=== PATIENT | female | born 1985 | race Caucasian/White ===

== ENCOUNTER 2018-09-11 18:07 | Observation (INO) ==
--- NOTE | 2018-09-11 18:43 | PROVIDER DOCUMENTATION ---
HPI-General Adult - General Chief Complaint: Seizure Stated Complaint: SEIZURE Time Seen by Provider: 09/11/18 18:24 Source: patient Allergies/Adverse Reactions: Patient Allergies Allergy/AdvReac Type Severity Reaction Status Date / Time azithromycin Allergy Severe Unknown Verified 09/11/18 21:57 [From Zithromax Z-Thanh] ketorolac [From Toradol] Allergy Mild Unknown Verified 09/11/18 21:57 - History of Present Illness -Gen Adult Nature of Presenting Problems: Pt. is 33 yof that presents with c/o seizures. Pt. reports she has a Hx of seizures and states she has had 16 seizures in the last week. Pt. states no one is hurting her despite significant bruising on her body. She was not incontinent and did not bite her tongue or lip. Location of Pain/Injury: reports: head, hand(s) (Right). denies: none, face, mouth, neck, chest, upper extremity, abdomen, back, pelvis, genitalia, lower extremity, feet, upper body, lower body, generalized, other Pain Radiation: reports: no radiation. denies: arm(s), back, buttocks, chest, epigastric, feet, groin, jaw, flank (L), legs (lower), LLQ, LUQ, neck, periumbilical, flank (R), RLQ, RUQ, shoulder(s), scapula, scrotal, sternal notch, suprapubic, legs (upper), urethral, vaginal, other Quality of Pain: reports: aching. denies: burning, indigestion, sharp, throbbing, tightness Severity: reports: mild. denies: moderate, severe Onset/Duration: reports: gradual, 1 week ago Timing: reports: still present. denies: improving, intermittent, getting worse Context/Activities at Onset: reports: vigorous activity, recent trauma history. denies: none, light activity, moderate activity, recent emotional stress, recent physical stress, possible bad food, cold exposure, eating, out of country travel, rest, sleep, sexual activity, other Modifying Factors: improves with: nothing Associated Symptoms: reports: seizure. denies: denies symptoms, anxiety, arm pain, back/neck pain, chest pain, constipation, cough, diaphoresis, diarrhea, dizziness, EENT symptoms, fatigue, fever/chills, genitourinary problems, headaches, heartburn, joint pain, loss of appetite, malaise, muscle aches, sinus congestion/drainage, nausea, rash, shortness of breath, sensory/motor loss, pain with inspiration, swelling/mass in abdomen, syncope, vomiting, weakness, trouble walking, other Similar Symptoms Previously?: Yes Recently seen or treated by another doctor?: No Review of Systems - Adult - REVIEW OF SYSTEMS - ADULT Constitutional: reports: no symptoms reported Eyes: reports: no symptoms reported Ears, Nose, Mouth & Throat: reports: no symptoms reported Cardiovascular: reports: no symptoms reported Respiratory: reports: no symptoms reported Gastrointestinal: reports: no symptoms reported Genitourinary: reports: no symptoms reported Musculoskeletal: reports: see HPI, joint pain (Right hand), joint swelling (Right hand), muscle aches. denies: bone pain, back pain, neck pain Integumentary: reports: no symptoms reported Neurological: reports: see HPI, headache/migraines, seizure. denies: diz ziness/vertigo, numbness, tremors Psychiatric: reports: no symptoms reported Past History - Adult - PAST MEDICAL HISTORY-ADULT Review of Records: reports: Old Records Reviewed, Nursing Assessment Review, Medications Reviewed, Social history reviewed & non-contributory. - IMMUNIZATION STATUS Childhood Immunizations: See Nurse Assessment Flu Vaccine: See Nurse Assessment - FAMILY HISTORY Family History: reviewed, not pertinent - SOCIAL HISTORY Smoking: cigarettes, greater than 1 pack/day Provider spent 3-5 mins advising pt. on dangers of tobacco.: Discussed manners to quit use, and f/u contacts for add'l counseling. Physical Exam-General - PHYSICAL EXAM-ADULT Initial Vital Signs Reviewed: Yes - CONSTITUTIONAL General Appearance: alert, no apparent distress - EYES Eyes: PERRL/EOMI, pink conjunctivae - HEAD, EARS, NOSE, MOUTH & THROAT HENMT: moist mucous membranes - NECK Neck: non-tender, full range of motion, supple, normal inspection - RESPIRATORY Respiratory: lungs clear, normal breath sounds - CARDIOVASCULAR Cardiovascular: normal peripheral pulses, regular rate, rhythm - GASTROINTESTINAL (ABDOMEN) Abdominal Exam: normal bowel sounds, non tender, soft - LYMPHATIC Lymphatic: no adenopathy. negative: axilla node tender, cervical node tenderness - MUSCULOSKELETAL Back Exam: normal inspection, no CVA tenderness Extremity: swelling (Right hand), tenderness (Right hand) Peripheral Pulses: radial (R): 2+, radial (L): 2+ - SKIN Integumentary: normal color, normal turgor, ecchymosis (There are multiple bruises all over the body). negative: cyanosis, jaundice, warm - NEUROLOGIC Neurologic: grossly normal, no motor/sensory deficits - PSYCHIATRIC Psych/Mental Status: normal mood/affect, normal thought content, normal thought process, oriented x 3 Progress - PLAN OF CARE/RESULTS Progress/Plan/Lab Results: Vital Signs - 8 hr 09/11/18 18:10 09/11/18 18:16 Temperature 99.7 F H 99.7 F H Pulse Rate 95 H 102 H Respiratory Rate 16 16 Blood Pressure 133/88 130/88 O2 Sat by Pulse Oximetry 96 95 Orders Category Date Time Status ED: Urine Bedside ORDERED Care 09/11/18 18:36 Active FSBS [Finger Stick Blood Sugar (ED)] DIRECTED Care 09/11/18 18:36 Active URINALYSIS W/POSS RFLX CULT [URINALYSIS] Stat Lab 09/11/18 18:37 Uncollected URINE DRUG SCREEN Stat Lab 09/11/18 18:37 Uncollected Result Diagrams: 09/11/18 20:54 09/11/18 20:54 - REASSESSMENT Reassessment #1 Time Reassessed: 21:04 (pt seizing. O2 sat decreases to 90%, no incontience.) Reassessment #2 Time Reassessed: 22:36 (Pt has multiple bruises, pt denies any assault or unsafe environment. Pt agrees with admission.) - XRAY 1 XRAY: Right XRAY Study: Hand ([facility] - [address], [address] [address] [facility] - [address] [place] [address] Department of Imaging Patient: HARSH PETERSON Date: 09/11/18MR#: [id number] : 1985ADM Status: REG ERAt#: [id number] Age/Sex: 33/FRoom/Bed: Loc: ED Ordering Physician: Kong Rossi Family Physician: None,PCP Reason for Procedure: injury post seizure ___ Signed EXAM: HAND COMPLETE RIGHT HISTORY: injury post seizure TECHNIQUE: Right hand, three views COMPARISON: None. FINDINGS: No fracture. No dislocation. IMPRESSION: No acute bony injury. Electronically signed by Giuliano Domingo 09/11/2018 8:55 PM 09/11/182054 Interpreting Physician: Giuliano Jenkins MD Dictated Date/Time: 09/11/182053 cc: Kong Rossi; None,PCP) XRAY Interpretation: See note 2 XRAY Study: Ribs Impression: See EMR Report (FINDINGS: No contusion. No pneumothorax. No displac ed fracture. IMPRESSION: No injury) - CT/MRI 1 CT Study: Head Impression: See EMR Report (FINDINGS: Head: No parenchymal hemorrhage. No epidural or subdural hematoma. No subarachnoid hemorrhage. No mass identified on this noncontrasted exam. No hydrocephalus. No skull fracture. Cervical spine: There is good alignment to the cervical spine. No precervical soft tissue swelling. No subluxation. No fracture. IMPRESSION: Head: No hemorrhage. No injury. Cervical spine: No acute fracture.) - CONSULTS/PCP/HOSPITALIST Notification #1 *Consult/PCP/Hospitalist*: Dr Reyes Time Discussed: 22:00 Consult Disposition: other (states he "will look at patient") - CHANGE OF SHIFT REPORT (ED Provider) 1 Report Given and Care Transferred to:: JOSE ALEJANDRO Blas Time of Transfer: 21:00 Items Pending: CT/MRI Results Departure - Departure Date of Disposition Decision: 09/11/18 Time of Disposition Decision: 22:37 DIAGNOSIS: Seizure Disposition: ADMITTED INPATIENT 09 Certified Medical Emergency: Emergent Condition: Fair Referrals and Follow-Ups: None,PCP [Primary Care Provider] - - Critical Care Note This patient required my direct & personal management of CC.: No Attestation - Physician/ CHAZ Attestation Patient care was provided by Advanced Practice Provider:: Yes Advanced Practice Provider:: Kong Rossi Advanced Practice Provider documentation review:: The Mid-level provider documentation, treatment plan and medical decision making was reviewed by the physician who agrees with all treatment and medical decision making by the MLP. The physician spent face to face time with patient:: No Advanced Practice Provider documentation review:: Supervising physician onsite and consulted in the evaluation and care of this patient. The physician did not have a face to face encounter with the patient.
[2018-09-11 19:33] LABS: URINE SOURCE CATH
[2018-09-11 19:36] LABS: BILIRUBIN URINE NEGATIVE (NEGATIVE); BLOOD URINE NEGATIVE (NEGATIVE); COLOR YELLOW; GLUCOSE URINE NEGATIVE (NEGATIVE); KETONE URINE 10 mg/dL (NEGATIVE); LEUKOCYTES URINE TRACE (NEGATIVE); NITRITE URINE NEGATIVE (NEGATIVE); PH URINE 6.5; PROTEIN URINE 30 mg/dL (NEGATIVE); SP GRAVITY URINE 1.027; TURBIDITY URINE CLEAR (CLEAR); UROBILINOGEN URINE 6 mg/dL (NORMAL)
[2018-09-11 19:37] LABS: UR EPITHELIAL CELLS <10 /HPF (<10); URINE BACTERIA NEGATIVE /HPF; URINE RBC <10 /HPF (<10); URINE WBC <10 /HPF (<10)
[2018-09-11] MEDS ORDERED: ATIVAN ONE (19:43)
[2018-09-11 19:49] LABS: UR AMPHETAMINES QUAL NONE DETECTED (NONE DETECT); UR BARBITUATES QUAL NONE DETECTED (NONE DETECT); UR BENZODIAZEPIN QUAL PRESUMPTIVE POSITIVE (NONE DETECT); UR CANNABINOIDS QUAL PRESUMPTIVE POSITIVE (NONE DETECT); UR COCAINE QUAL NONE DETECTED (NONE DETECT); UR METHADONE QUAL NONE DETECTED (NONE DETECT); UR OPIATES QUAL PRESUMPTIVE POSITIVE (NONE DETECT); UR OXYCODONE QUAL NONE DETECTED (NONE DETECT); UR PCP QUAL NONE DETECTED (NONE DETECT)
[2018-09-11] MEDS ORDERED: ATIVAN IV ONE ×2 (20:22→20:58)
--- NOTE | 2018-09-11 20:57 | Diag Imaging Result Doc PS360 ---
EXAM: HAND COMPLETE RIGHT HISTORY: injury post seizure TECHNIQUE: Right hand, three views COMPARISON: None. FINDINGS: No fracture. No dislocation. IMPRESSION: No acute bony injury. Electronically signed by Giuliano Domingo 09/11/2018 8:55 PM
--- NOTE | 2018-09-11 21:02 | Diag Imaging Result Doc PS360 ---
EXAM : CT HEAD/C-SPINE W/O CONTRAST HISTORY: seizure TECHNIQUE: 1. CT head without contrast 2. CT cervical spine without contrast COMPARISON: None. FINDINGS: Head: No parenchymal hemorrhage. No epidural or subdural hematoma. No subarachnoid hemorrhage. No mass identified on this noncontrasted exam. No hydrocephalus. No skull fracture. Cervical spine: There is good alignment to the cervical spine. No precervical soft tissue swelling. No subluxation. No fracture. IMPRESSION: Head: No hemorrhage. No injury. Cervical spine: No acute fracture. This exam was performed using automated exposure control, adjustment of mA or kV according to patient size, and/or use of iterative reconstruction technique. Electronically signed by Giuliano Domingo 09/11/2018 9:00 PM
--- NOTE | 2018-09-11 21:05 | Diag Imaging Result Doc PS360 ---
EXAM: RIBS UNILAT W/PA CHEST RIGHT HISTORY: injury post seizure TECHNIQUE: Chest and right rib detail, three views COMPARISON: None. FINDINGS: No contusion. No pneumothorax. No displaced fracture. IMPRESSION: No injury Electronically signed by Giuliano Domingo 09/11/2018 9:03 PM
[2018-09-11 21:12] LABS: BASO# 0.03 X1000 (0.0-0.2); BASO% 0.4 % (0.0-0.8); EOS# 0.14 X1000 (0.0-0.7); EOS% 1.9 % (0.0-10.0); HEMATOCRIT 36.6 % (37.0-47.0); HEMOGLOBIN 12.5 g/dL (12.0-16.0); IMM GRAN# 0.03 X1000 (0.0-0.04); IMM GRAN% 0.4 % (0.0-0.5); LYMPH# 2.02 X1000 (1.2-3.4); LYMPH% 26.8 % (20.5-51.1); MCH 30.5 PG (27-31); MCHC 34.2 g/dL (33-37); MCV 89.3 FL (81-99); MONO# 0.58 X1000 (0.11-0.59); MONO% 7.7 % (1.7-9.3); MPV 9.9 FL (7.4-10.4); NEUT# 4.74 X1000 (1.4-6.5); NEUT% 62.8 % (42.2-75.2); PLT 221 X1000 (130-400); RDW 14.1 % (11.5-14.5); WBC 7.54 X1000 (4.8-10.8)
[2018-09-11] MEDS ORDERED: TORADOL ONE (21:30)
[2018-09-11 21:33] LABS: CHLORIDE 107 mmol/L (98-107); POTASSIUM 3.6 mmol/L (3.5-5.1); SODIUM 140 mmol/L (136-145); TCO2 22 mmol/L (25-35)
[2018-09-11 21:34] LABS: AGAP 11; ALB/GLOB RATIO 1.7; ALKALINE PHOSPHATASE 58 U/L (32-104); BUN 8 mg/dL (8-22); CALCIUM 8.4 mg/dL (8.8-10.2); COSMO 277; CREATININE 0.8 mg/dL (0.5-0.9); ESTIMATED GFR > 60; GLUCOSE 93 mg/dL (70-104); GOT 21 U/L (10-30); GPT 11 U/L (10-36); PHENYTOIN < 0.80 ug/mL (10-20); TOTAL BILIRUBIN 0.27 mg/dL (0.20-1.00); TOTAL PROTEIN 6.4 g/dL (6.3-8.3)
[2018-09-11] MEDS ORDERED: KEPPRA 1,000 MG in NS 100 ML IV ONE (21:49)
[2018-09-11] MEDS ORDERED: TYLENOL PO ONE (21:55)
--- NOTE | 2018-09-11 22:44 | HISTORY AND PHYSICAL ---
PRIMARY CARE PHYSICIAN: Unknown. CHIEF COMPLAINT: Seizures. HISTORY OF PRESENTING ILLNESS: A 33-year-old female with a history of seizure disorder and PTSD who present to emergency department with complaint of having about 18 seizures last week and several seizures today. She was evaluated in the emergency department. She denied biting her tongue or losing conscious. She was evaluated in the emergency department. Due to her presenting symptoms, it was thought that we will place her for observation for further evaluation and management. At the time of my examination, patient denied any headache, fever, chills, nausea, vomiting, diarrhea, hemoptysis, melena, or weight changes. States she still does not feel well. PAST MEDICAL HISTORY: Includes seizure disorder, PTSD. PAST SURGICAL HISTORY: Right shoulder surgery. ALLERGIES: Penicillin, and Ketoralac. CURRENT MEDICATIONS: Include: Trileptal, Cymbalta, Xanax and gabapentin. SOCIAL HISTORY: No history of smoking or alcohol. he denies any illicit drug use. FAMILY HISTORY: No history of coronary disease. REVIEW OF SYSTEMS: Fourteen point review of system as listed in HPI. Other systems negative. PHYSICAL EXAMINATION: GENERAL: Cooperative, friendly female. She is without any respiratory distress. VITAL SIGNS: Temperature 99.7 degrees, pulse 102, respirations 16, blood pressure 130/88. HEENT: Atraumatic, normocephalic. Extraocular movements intact. PERRLA. NECK: No masses. CHEST: Clear to auscultation. CARDIOVASCULAR: Regular rate and rhythm. ABDOMEN: Soft positive, bowel sounds. EXTREMITIES: No edema. NEUROLOGIC: She is awake, alert, oriented x3. : No bladder distention. SKIN: Has multiple areas of bruising noted. Two out of body. LABORATORIES AND STUDIES: WBC 7.54, hemoglobin 12.5, hematocrit 36.6, platelets 221,000. Sodium 140, potassium 3.6, chloride 107, CO2 22, BUN is 8, creatinine 0.8, glucose is 93. Toxicology shows opiate positive and benzodiazepines positive, marijuana positive, cannabinoids positive. ASSESSMENT: This is a 33-year-old female with a history of seizure disorder, and posttraumatic stress disorder who presented to emergency department with complaints of having breakthrough seizures last week and several of them today. She was evaluated in the emergency department. Due to her presenting symptoms, it was thought that we will place her in observation for further evaluation and management. 1. Breakthrough seizures. 2. Posttraumatic stress disorder. PLAN: 1. We will admit patient to medical floor with telemetry. 2. We will continue patient on Keppra, which was started in the emergency department. 3. We will put the patient on seizure precautions. 4. We will consult Neurology. 5. We will continue to follow and reassess. Make further recommendation based on patient's clinical course. cc: Nils Reyes MD
[2018-09-12] MEDS ORDERED: ATIVAN IV PRN (01:43)
[2018-09-12] MEDS: KEPPRA 500 MG in NS 100 ML IV SCH ×2 (02:40→15:24)
[2018-09-12 08:24] LABS: BASO# 0.02 X1000 (0.0-0.2); BASO% 0.4 % (0.0-0.8); EOS# 0.13 X1000 (0.0-0.7); EOS% 2.4 % (0.0-10.0); HEMATOCRIT 33.1 % (37.0-47.0); HEMOGLOBIN 11.3 g/dL (12.0-16.0); IMM GRAN# 0.02 X1000 (0.0-0.04); IMM GRAN% 0.4 % (0.0-0.5); LYMPH% 34.7 % (20.5-51.1); MCH 30.6 PG (27-31); MCHC 34.1 g/dL (33-37); MCV 89.7 FL (81-99); MONO# 0.57 X1000 (0.11-0.59); MONO% 10.4 % (1.7-9.3); MPV 10.1 FL (7.4-10.4); NEUT# 2.83 X1000 (1.4-6.5); NEUT% 51.7 % (42.2-75.2); PLT 203 X1000 (130-400); RBC 3.69 XMIL (4.2-5.4); RDW 14.1 % (11.5-14.5); WBC 5.47 X1000 (4.8-10.8)
[2018-09-12 08:58] LABS: AGAP 12; BUN 8 mg/dL (8-22); CALCIUM 8.4 mg/dL (8.8-10.2); CHLORIDE 107 mmol/L (98-107); COSMO 279; CREATININE 0.6 mg/dL (0.5-0.9); ESTIMATED GFR > 60; GLUCOSE 88 mg/dL (70-104); POTASSIUM 2.6 mmol/L (3.5-5.1); SODIUM 141 mmol/L (136-145); TCO2 22 mmol/L (25-35)
[2018-09-12] MEDS ORDERED: XANAX PO PRN (12:22)
[2018-09-12] MEDS ORDERED: TRILEPTAL PO SCH (13:00)
--- NOTE | 2018-09-12 14:30 | CONSULTATION ---
DATE OF CONSULTATION: 09/12/2018 NEUROLOGY CONSULT: Ms. Leiva is 33 years old, and she reports longstanding seizure disorder and recent seizures. She reports seizures began after head injury with loss of consciousness about 10 years ago. She recalls taking phenytoin, divalproex, levetiracetam, lamotrigine, topiramate in the past. She reports each of these was either ineffective or not tolerated. She does not recall specific AED dosing schedules. She eventually started oxcarbazepine several years ago and reports improvement with that drug. Still, she was having seizures every several months. She reports oxcarbazepine dose was increased to 900 mg b.i.d. a few months ago, and she has tolerated that dose. She reports several seizures daily for a few days prior to admission. She reports seizures begin with a sense that she sees "stars" globally without focal vision disturbance. She then often has a sense that she is about to pass out. She categorizes this as "aura." She then will next realize she is "waking up," often with friends checking on her. Sometimes, there has been a sustained memory gap, and she will next realize she is waking up at the hospital. Episodes have been associated with urinary incontinence fairly often. She has had tongue and lip biting many times. She feels tired afterwards and has generalized soreness without focal weakness or other focal deficit. She has a problem with headache which she believes is unrelated to seizures. Headaches just after seizure are not necessarily more likely or more intense than other headaches. She reports diagnosis of migraine in the past. Home medicines include alprazolam 1 mg t.i.d., and she confirms that dose. She reports never missing alprazolam dose and specifically not missing doses recently. She has had gabapentin 300 mg t.i.d. for the last 6 months for pain management. She has not missed a dose of that recently. She takes zolpidem every night. She has oxcarbazepine as above and reports no missed doses with current 900 mg b.i.d. Other medicines are duloxetine and cetirizine. She presented with urine drug screen positive for benzodiazepine, opiate, cannabis. Chemistry profile was unremarkable. Imaging included noncontrast CT of the head reported unremarkable. She has been afebrile. Heart rate was initially 90s to 100s and settled into 60s to 80s range after admission. Systolic blood pressures have ranged 110s to 140s. On exam, Ms. Leiva is awake, alert, attentive, appropriate. She is oriented. Speech is not dysarthric. Language function is intact. Memory is good. Head and neck are unremarkable. There is no meningismus. Visual aguero are full, tested grossly by confrontational finger counting. Extraocular movements are full. Facial motility is symmetric. Gag is intact. Tongue is midline. She can hear. Shoulder shrug is equal. Strength is normal in the arms and legs. She did well on [id number] testing bilaterally. She reports equal sensation over the limbs. I did not test her gait. IMPRESSION: History sounds like multiple episodes, sometimes consistent with generalized seizure. I told her frankly that I am not certain all of her episodes are seizure. We discussed the possibility that anxiety and hyperventilation might sometimes contribute to spells. We discussed the [place] Law as it pertains to driving, and she understands her responsibility. Further, I advised her not to get into any situation in which seizure or other episode of altered awareness might result in serious injury to her or to someone else. She has Neurology follow-up in [place] with Dr. Luna. She reports Dr. Luna has discussed epilepsy clinic referrals, monitoring, seizure surgery options with her. Since she seems stable now and has tolerated oxcarbazepine and reports oxcarbazepine seemed to provide benefit, I think we could increase oxcarbazepine dose to 1200 mg b.i.d. and discharge her with plans to follow up with Dr. Luna. I encouraged her to be careful with her benzodiazepines, and we briefly discussed potential for seizure with benzodiazepine withdrawal. Thanks for asking Neurology to see Ms. Leiva. cc: MD PHONG Phipps III
--- NOTE | 2018-09-12 16:40 | PROGRESS NOTE ---
DATE: 09/12/2018 SUBJECTIVE: This morning Ms. Leiva refers to be doing okay and has not had any more seizures. OBJECTIVE: Vital signs: Blood pressure is 119/78, pulse of 62, respiration is 18, temperature is 98.5 degrees. General: Ms. Leiva is a 33-year-old female. She is in bed, no distress. HEENT: Mucosa is pink and moist. Anicteric. Acyanotic. Neck: Supple. Chest: Clear to auscultation. No crepitations. No rhonchi. There was no accessory muscle use. Cardiovascular: Regular rate and rhythm. No murmurs, no rubs, no gallops. GI: Abdomen is soft, globally distended, but nontender. Bowel sounds present. ACQUISITIONS LOGISTICS ANALYST: Patient is awake, alert, oriented. There is no focal neurological deficit. LABORATORY DATA: Has been reviewed. WBC is 5.47, hemoglobin is 11.3, platelet count 203. Chemistry is also reviewed. Potassium is 2.0. Rest of chemistry is unremarkable. So far, urine culture is unremarkable. ASSESSMENT: 1. History of epilepsy with breakthrough seizures. 2. Posttraumatic stress disorder. 3. Recreational drug abuse with urine toxicology positive for cannabinoids. 4. Hypokalemia will be replaced. PLAN: So, in general, I think Ms. Leiva is doing a lot better. She has not had any more seizures. We are pending Neurology to evaluate her, and then we go from there. Ms. Leiva is a potential discharge today if it is okay with Neurology. cc: Kevan Corrales MD
[2018-09-12 16:57] VITALS: BP 128/89
[2018-09-12] MEDS ORDERED: NEURONTIN PO SCH (21:00)
[2018-09-12] MEDS ORDERED: AMBIEN PO SCH (21:00)
--- NOTE | 2018-09-13 07:14 | DISCHARGE SUMMARY ---
ADMISSION DATE: 09/11/2018 DISCHARGE DATE: 09/12/2018 DISPOSITION: Home. FOLLOWUP: Will be with Dr. Luna, neurologist, in [place]. PRESENTING COMPLAINT: Seizures. ADMISSION DIAGNOSES: 1. Breakthrough seizures. 2. Posttraumatic stress disorder. DIAGNOSES AT THE TIME OF DISCHARGE: 1. Epilepsy with breakthrough seizures. 2. Posttraumatic stress disorder. 3. Recreational drug abuse with urine toxicology positive for cannabinoids. 4. Hypokalemia, will be repleted. DISCHARGE MEDICATIONS: 1. Gabapentin 300 b.i.d. 2. Ambien 10 mg p.o. at bedtime. 3. Cymbalta 90 mg p.o. daily. 4. Alprazolam 1 mg 3 times per day. 5. Trileptal 600 mg 3 times per day. HISTORY OF PRESENTING COMPLAINT: Ms. Leiva is a 33-year-old female who is known to have epilepsy for the past 10 years, follows up with Dr. Luna in [place], came to the emergency department because of breakthrough seizures. According to Ms. Leiva, she had multiple seizures yesterday. Upon presenting to the emergency department, she was evaluated and admitted for seizure breakthrough. She was loaded with Keppra. HOSPITAL COURSE: Ms. Leiva was admitted to the medical floor under neurologic observation. Her home medications were restarted and Neurology was consulted. Patient was seen by Dr. Vaughn. After discussions with the patient, Dr. Vaughn recommended to increase the patient's Trileptal to 1200 b.i.d. The patient was on 300 three times per day. We had already increased it to 600 three times per day. The patient refers to feel more comfortable with that dosing and that she will follow up with her neurologist on outpatient basis and make any other changes necessary. Ms. Leiva has not had any more seizures during the hospital course. TIME SPENT FOR DISCHARGE: 35 minutes. Please refer to the details of my progress note for today. cc: Kevan Corrales MD
[2018-09-13] MEDS ORDERED: CYMBALTA PO SCH (09:00)
== END 2018-09-12 17:05 | disposition home or self-care (01) ==
LOC: ED 18:07 → 3N 18:07 → SUATTDRO 23:57
PROVIDERS: ATTEND Internal Medicine